=== PATIENT | male | born 1990 | race Caucasian/White ===

== ENCOUNTER 2022-12-22 02:36 | Emergency (ER) | payer OTHER ==
[~2022-12-22] VITALS: Ht 175.3 cm; Wt 130.6 kg
--- NOTE | 2022-12-22 03:10 | NUR ---
ATTEMPTED TO TRIAGE PATIENT. PT NOT FOUND IN WAITING ROOM.
[2022-12-22 03:11] VITALS: BP_SYST 129
--- NOTE | 2022-12-22 03:20 | NUR ---
PT FROM WORK WITH C/O OF EARACHE TO BOTH EARS ACCOMPANIED BY SORE THROAT, DIZZINESS WHEN COUGHING, AND FEVER ON TUESDAY. NON-FEBRILE ON ARRIVAL. BP OF 129/99, MADE AWARE. MD REQUESTED FOR MSE.
--- NOTE | 2022-12-22 03:23 | NUR ---
DR. HEBERT WITH PATIENT IN TRIAGE FOR MSE.
[2022-12-22] MEDS ORDERED: AUG875 PO (03:29)
[2022-12-22] MEDS ORDERED: MED4 PO (03:29)
[2022-12-22 03:32] VITALS: BP_SYST 129
--- NOTE | 2022-12-22 03:32 | NUR ---
Patient given written and verbal discharge instructions and verbalizes understanding. ER DR. HEBERT discussed with patient the results and treatment provided. Patient in stable condition. ID arm band removed. Rx of AUGMENTIN, MEDROL given. Patient educated on pain management and to follow up with PMD. Pain Scale 0. Opportunity for questions provided and answered. Medication side effect fact sheet provided.
--- NOTE | 2022-12-22 03:32 | NUR ---
D/C BY DR. HEBERT.
== END 2022-12-22 03:22 | disposition home or self-care (01) ==
LOC: SED 02:36
DX: J02.9 Acute pharyngitis, unspecified (principal); R05.9 Cough, unspecified; R50.9 Fever, unspecified; Z79.899 Other long term (current) drug therapy
CPT/HCPCS: 99283

== ENCOUNTER 2023-01-01 11:41 | Outpatient (CLI) | payer OTHER ==
[~2023-01-01 11:41] MED LIST: AUG875 PO; MED4 PO
[2023-01-01 12:15] LABS: BASOPHILS % (AUTO) 0.4 % (0.0-2.0); EOSINOPHILS # (AUTO) 0.1 K/uL (0.0-0.4); EOSINOPHILS % (AUTO) 1.7 % (0.0-4.0); HEMATOCRIT 43.7 % (36-54); HEMOGLOBIN 14.9 g/dL (14.0-18.0); LYMPHOCYTES # (AUTO) 2.7 K/uL (1.0-5.5); LYMPHOCYTES % (AUTO) 35.7 % (20.5-51.5); MEAN CORPUSCULAR HEMOGLOBIN 30 pg (27-31); MEAN CORPUSCULAR HGB CONC 34 % (32-36); MEAN CORPUSCULAR VOLUME 87 fL (79.0-98.0); MONOCYTES # (AUTO) 0.4 K/uL (0.0-1.0); MONOCYTES % (AUTO) 5.4 % (1.7-9.3); NEUTROPHILS # (AUTO) 4.3 K/uL (1.8-7.7); NEUTROPHILS % (AUTO) 56.8 % (40.0-70.0); PLATELET COUNT (AUTO) 301 K/uL (130-430); RED BLOOD CELL COUNT(AUTO) 5.02 MIL/uL (4.2-6.2); RED CELL DISTRIBUTION WIDTH 13.1 % (9.0-15.0); WHITE BLOOD COUNT (AUTO) 7.5 K/uL (4.8-10.8)
[2023-01-01 12:50] LABS: ALBUMIN 3.8 g/dL (3.4-4.8); CALCIUM 8.6 mg/dL (8.4-11.0); CREATININE 0.93 mg/dL (0.55-1.30); THYROID STIMULATING HORMONE 2.75 uIu/mL (0.34-4.82); TOTAL BILIRUBIN 0.5 mg/dL (0.0-1.0)
[2023-01-01 13:19] LABS: BILIRUBIN,URINE NEGATIVE (NEGATIVE); BLOOD, URINE NEGATIVE (NEGATIVE); CLARITY/URINE CLEAR (CLEAR); COLOR,URINE YELLOW (YELLOW); GLUCOSE,URINE NEGATIVE (NEGATIVE); KETONES,URINE NEGATIVE (NEGATIVE); LEUKOCYTE ESTERASE ,URINE NEGATIVE (NEGATIVE); NITRITE, URINE NEGATIVE (NEGATIVE); PH,URINE 6.5 (5.0-8.0); PROTEIN URINE NEGATIVE (NEGATIVE); UROBILINOGEN,URINE 0.2 (0.2-1.0)
== END 2023-01-01 16:41 | disposition home or self-care (01) ==
LOC: SLB 11:41
PROVIDERS: ATTEND Internal Medicine
DX: Z11.3 Encounter for screening for infections with a predominantly sexual mode of transmission (principal); E78.5 Hyperlipidemia, unspecified; R73.9 Hyperglycemia, unspecified; E55.9 Vitamin D deficiency, unspecified; E56.9 Vitamin deficiency, unspecified
CPT/HCPCS: 36415; 80053; 80061; 81003; 82306; 82607; 83037; 84443; 85025; 86592; 87491

== ENCOUNTER 2023-02-14 06:18 | Outpatient (CLI) | payer OTHER | END 2023-02-14 18:51 | disposition home or self-care (01) | LOC: SRD 06:18 | PROVIDERS: ATTEND Internal Medicine | DX: I51.7 Cardiomegaly (principal); M54.9 Dorsalgia, unspecified; M40.294 Other kyphosis, thoracic region | CPT/HCPCS: 72072-TC; 72100-TC; 93306 ==

== ENCOUNTER 2023-02-27 07:44 | Emergency (ER) | payer OTHER ==
[~2023-02-27] VITALS: Ht 175.3 cm; Wt 127.5 kg
--- NOTE | 2023-02-27 08:00 | NUR ---
PT BIB SELF AWAKE AND ALERT AOX4, NO SOB ORDISTRESS. PT C/O HEART PALPITATION AND CHEST TIGHTNESS. PT DENIES PAIN. 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 PT HAS HX OF PALPITATION, HTN, PVC.
--- NOTE | 2023-02-27 08:01 | NUR ---
MD DR HEBERT AT BEDSIDE
[2023-02-27 08:23] LABS: BASOPHILS % (AUTO) 0.3 % (0.0-2.0); EOSINOPHILS # (AUTO) 0.2 K/uL (0.0-0.4); EOSINOPHILS % (AUTO) 2.6 % (0.0-4.0); HEMATOCRIT 44.1 % (36-54); HEMOGLOBIN 15.2 g/dL (14.0-18.0); LYMPHOCYTES # (AUTO) 2.1 K/uL (1.0-5.5); LYMPHOCYTES % (AUTO) 31.9 % (20.5-51.5); MEAN CORPUSCULAR HEMOGLOBIN 30 pg (27-31); MEAN CORPUSCULAR HGB CONC 34 % (32-36); MEAN CORPUSCULAR VOLUME 87 fL (79.0-98.0); MONOCYTES # (AUTO) 0.5 K/uL (0.0-1.0); MONOCYTES % (AUTO) 7.2 % (1.7-9.3); NEUTROPHILS # (AUTO) 3.9 K/uL (1.8-7.7); PLATELET COUNT (AUTO) 242 K/uL (130-430); RED BLOOD CELL COUNT(AUTO) 5.06 MIL/uL (4.2-6.2); RED CELL DISTRIBUTION WIDTH 12.8 % (9.0-15.0); WHITE BLOOD COUNT (AUTO) 6.7 K/uL (4.8-10.8)
[2023-02-27 08:43] LABS: CALCIUM 8.7 mg/dL (8.4-11.0); CREATININE 0.88 mg/dL (0.55-1.30); TOTAL BILIRUBIN 0.6 mg/dL (0.0-1.0)
[2023-02-27 09:09] VITALS: BP_SYST 143
[2023-02-27 09:14] LABS: THYROID STIMULATING HORMONE 1.37 uIu/mL (0.34-4.82)
[2023-02-27 10:38] VITALS: BP_SYST 117
--- NOTE | 2023-02-27 10:38 | NUR ---
Patient given written and verbal discharge instructions and verbalizes understanding. ER MD discussed with patient the results and treatment provided. Patient in stable condition. ID arm band removed. Opportunity for questions provided and answered. Medication side effect fact sheet provided.
== END 2023-02-27 10:38 | disposition home or self-care (01) ==
LOC: SED 07:44
DX: R07.89 Other chest pain (principal); F41.1 Generalized anxiety disorder; R00.2 Palpitations; R20.2 Paresthesia of skin; Z79.899 Other long term (current) drug therapy
CPT/HCPCS: 36415; 71045; 80053; 83880; 84443; 84484; 85025; 85379; 99284

== ENCOUNTER → 2023-05-17 | Outpatient (CLI) | payer OTHER ==
[2023-05-18 00:32] LABS: ERYTHROCYTE SEDIMENTATION RATE 3 MM/HR (0-15)
[2023-05-18 00:35] LABS: BASOPHILS % (AUTO) 0.3 % (0.0-2.0); EOSINOPHILS # (AUTO) 0.1 K/uL (0.0-0.4); EOSINOPHILS % (AUTO) 1.5 % (0.0-4.0); HEMATOCRIT 44.3 % (36-54); HEMOGLOBIN 14.8 g/dL (14.0-18.0); LYMPHOCYTES % (AUTO) 35.8 % (20.5-51.5); MEAN CORPUSCULAR HEMOGLOBIN 30 pg (27-31); MEAN CORPUSCULAR HGB CONC 34 % (32-36); MEAN CORPUSCULAR VOLUME 88 fL (79.0-98.0); MONOCYTES # (AUTO) 0.6 K/uL (0.0-1.0); MONOCYTES % (AUTO) 6.7 % (1.7-9.3); NEUTROPHILS # (AUTO) 4.7 K/uL (1.8-7.7); NEUTROPHILS % (AUTO) 55.7 % (40.0-70.0); PLATELET COUNT (AUTO) 263 K/uL (130-430); RED BLOOD CELL COUNT(AUTO) 5.03 MIL/uL (4.2-6.2); RED CELL DISTRIBUTION WIDTH 12.7 % (9.0-15.0); WHITE BLOOD COUNT (AUTO) 8.4 K/uL (4.8-10.8)
[2023-05-18 00:46] LABS: HEMOGLOBIN A1C 4.93 % (<5.7)
[2023-05-18 01:08] LABS: ALBUMIN 3.9 g/dL (3.4-4.8); CALCIUM 8.9 mg/dL (8.4-11.0); CREATININE 1.04 mg/dL (0.55-1.30); THYROID STIMULATING HORMONE 2.31 uIu/mL (0.34-4.82); TOTAL BILIRUBIN 0.4 mg/dL (0.0-1.0)
== END | disposition home or self-care (01) ==
LOC: SLB 23:55
PROVIDERS: ATTEND Internal Medicine
DX: E03.9 Hypothyroidism, unspecified (principal); R73.9 Hyperglycemia, unspecified; E55.9 Vitamin D deficiency, unspecified
CPT/HCPCS: 36415; 80053; 82306; 83037; 83735; 84403; 84443; 85025; 85651-TC

== ENCOUNTER 2023-06-13 04:43 | Emergency (ER) | payer OTHER ==
[~2023-06-13] VITALS: Ht 175.3 cm; Wt 115.7 kg
[2023-06-13 05:10] VITALS: BP_SYST 118; PULSE 132; RESP 19; TEMP 97.6; O2SAT 97
[2023-06-13 06:19] LABS: INFLUENZA TYPE A negative (NEGATIVE); INFLUENZA TYPE B NEGATIVE (NEGATIVE)
[2023-06-13] MEDS ORDERED: D-ME118S48 PO (06:32)
[2023-06-13 06:57] VITALS: BP_SYST 143; PULSE 109; RESP 17; TEMP 98; O2SAT 98
== END 2023-06-13 06:52 | disposition home or self-care (01) ==
LOC: SED 04:43
DX: J06.9 Acute upper respiratory infection, unspecified (principal); R05.9 Cough, unspecified; R09.81 Nasal congestion; R50.9 Fever, unspecified; Z79.899 Other long term (current) drug therapy
CPT/HCPCS: 99284; 71045; 36415; 87804 ×2; J7030

== ENCOUNTER 2023-10-06 01:16 | Emergency (ER) | payer OTHER ==
[~2023-10-06] VITALS: Ht 175.3 cm; Wt 113.4 kg
[~2023-10-06 01:16] MED LIST changes: +BROM118S61 PO
[2023-10-06] MEDS ORDERED: NACL 0.9% 1,000 ML IV ONE (02:00)
[2023-10-06] MEDS ORDERED: ONDANSETRON HCL 4 MG/2 ML VIAL IVP ONE ×2 (02:00→03:45)
[2023-10-06 02:41] VITALS: BP_SYST 122; PULSE 107; RESP 20; TEMP 98.8; O2SAT 97
[2023-10-06 02:45] LABS: BASOPHILS % (AUTO) 0.1 % (0.0-2.0); EOSINOPHILS % (AUTO) 0.3 % (0.0-4.0); HEMATOCRIT 46.7 % (36-54); HEMOGLOBIN 16.1 g/dL (14.0-18.0); LYMPHOCYTES # (AUTO) 0.4 K/uL (1.0-5.5); LYMPHOCYTES % (AUTO) 4.8 % (20.5-51.5); MEAN CORPUSCULAR HEMOGLOBIN 30 pg (27-31); MEAN CORPUSCULAR HGB CONC 35 % (32-36); MEAN CORPUSCULAR VOLUME 88 fL (79.0-98.0); MONOCYTES # (AUTO) 0.3 K/uL (0.0-1.0); NEUTROPHILS # (AUTO) 8.2 K/uL (1.8-7.7); NEUTROPHILS % (AUTO) 91.8 % (40.0-70.0); PLATELET COUNT (AUTO) 246 K/uL (130-430); WHITE BLOOD COUNT (AUTO) 8.9 K/uL (4.8-10.8)
[2023-10-06 02:50] LABS: INFLUENZA TYPE A Negative (NEGATIVE); INFLUENZA TYPE B NEGATIVE (NEGATIVE)
[2023-10-06 02:51] LABS: ANION GAP 12 (5-15); CALCIUM 8.6 mg/dL (8.4-11.0); CARBON DIOXIDE 26 mmol/L (23-29); CHLORIDE 98 mmol/L (98-107); CREATININE 0.95 mg/dL (0.55-1.30); GFR AFRICAN AMERICAN 118 mL/min (>90); GFR NON AFRICAN-AMERICAN 98 mL/min (>90); GLUCOSE 127 mg/dL (74-106); POTASSIUM 3.4 mmol/L (3.5-5.1); SODIUM SERUM 136 mmol/L (136-145); UREA NITROGEN, BLOOD 14 mg/dL (8-21)
[2023-10-06] MEDS ORDERED: iohexoL 350 mgI/mL, 100 ML INFUS..BTL IV ONE (03:22)
[2023-10-06 05:11] LABS: BILIRUBIN,URINE NEGATIVE (NEGATIVE); BLOOD, URINE NEGATIVE (NEGATIVE); CLARITY/URINE CLEAR (CLEAR); COLOR,URINE YELLOW (YELLOW); GLUCOSE,URINE NEGATIVE (NEGATIVE); KETONES,URINE 1+ (NEGATIVE); LEUKOCYTE ESTERASE ,URINE NEGATIVE (NEGATIVE); NITRITE, URINE NEGATIVE (NEGATIVE); PROTEIN URINE NEGATIVE (NEGATIVE); UROBILINOGEN,URINE 0.2 (0.2-1.0)
[2023-10-06] MEDS ORDERED: ONDA-8 TL (05:53)
[2023-10-06 06:10] VITALS: BP_SYST 129; PULSE 110; RESP 22; TEMP 98.9; O2SAT 100
== END 2023-10-09 06:19 | disposition home or self-care (01) ==
LOC: SED 01:16
DX: K52.9 Noninfective gastroenteritis and colitis, unspecified (principal); R00.0 Tachycardia, unspecified; E86.0 Dehydration; R20.2 Paresthesia of skin; R11.2 Nausea with vomiting, unspecified; Z79.899 Other long term (current) drug therapy; Z20.822 Contact with and (suspected) exposure to COVID-19
CPT/HCPCS: 99285; 96374; 71275; 96361; 87426; 80048; 81001; 85025; 84484; 36415; 93005; 96376; 81003; 87804 ×2; 76376; Q9967; J2405; J7030

== ENCOUNTER 2024-01-23 15:41 | Outpatient (CLI) | payer OTHER ==
[~2024-01-23 15:41] MED LIST changes: +ONDA-8 TL
[2024-01-23 16:29] LABS: BLOOD, URINE NEGATIVE (NEGATIVE); CLARITY/URINE CLEAR (CLEAR); COLOR,URINE YELLOW (YELLOW); GLUCOSE,URINE NEGATIVE (NEGATIVE); KETONES,URINE 2+ (NEGATIVE); LEUKOCYTE ESTERASE ,URINE NEGATIVE (NEGATIVE); NITRITE, URINE NEGATIVE (NEGATIVE); PH,URINE 6.5 (5.0-8.0); PROTEIN URINE TRACE (NEGATIVE)
[2024-01-23 16:39] LABS: BASOPHILS % (AUTO) 0.4 % (0.0-2.0); EOSINOPHILS # (AUTO) 0.1 K/uL (0.0-0.4); EOSINOPHILS % (AUTO) 1.2 % (0.0-4.0); HEMATOCRIT 44.3 % (36-54); HEMOGLOBIN 15.6 g/dL (14.0-18.0); LYMPHOCYTES # (AUTO) 2.4 K/uL (1.0-5.5); LYMPHOCYTES % (AUTO) 39.1 % (20.5-51.5); MEAN CORPUSCULAR HEMOGLOBIN 30 pg (27-31); MEAN CORPUSCULAR HGB CONC 35 % (32-36); MEAN CORPUSCULAR VOLUME 86 fL (79.0-98.0); MONOCYTES # (AUTO) 0.4 K/uL (0.0-1.0); NEUTROPHILS # (AUTO) 3.3 K/uL (1.8-7.7); NEUTROPHILS % (AUTO) 52.3 % (40.0-70.0); PLATELET COUNT (AUTO) 251 K/uL (130-430); RED BLOOD CELL COUNT(AUTO) 5.15 MIL/uL (4.2-6.2); RED CELL DISTRIBUTION WIDTH 12.7 % (9.0-15.0); WHITE BLOOD COUNT (AUTO) 6.3 K/uL (4.8-10.8)
[2024-01-23 16:45] LABS: BILIRUBIN,URINE 1+ (NEGATIVE)
[2024-01-23 16:47] LABS: BACTERIA,URINE RARE /HPF (None Seen); RBC,URINE NONE SEEN /HPF (0-3); WBC,URINE 0-3 /HPF (0-3)
[2024-01-23 16:48] LABS: MUCUS,URINE None Seen /LPF (None Seen)
[2024-01-23 17:06] LABS: ALBUMIN 4.3 g/dL (3.4-4.8); CALCIUM 9.4 mg/dL (8.4-11.0); CREATININE 1.04 mg/dL (0.55-1.30); FREE T4 (FREE THYROXINE) 1.1 ng/dl (0.8-1.5); POTASSIUM 3.6 mmol/L (3.5-5.1); THYROID STIMULATING HORMONE 3.46 uIu/mL (0.36-3.74); TOTAL BILIRUBIN 1.1 mg/dL (0.0-1.0); TOTAL PROTEIN, SERUM 7.9 g/dL (6.4-8.3)
[2024-01-23 17:14] LABS: HEMOGLOBIN A1C 5.11 % (<5.7)
[2024-01-25 08:06] LABS: HSV 2 IgG, TYPE SPECIFIC <0.91 index (0.00-0.90); TESTOSTERONE, TOTAL SERUM 362 ng/dL (264-916)
[2024-01-25 11:07] LABS: VIT D,1, 25-DIHYDROXY 72.1 pg/mL (24.8-81.5)
== END 2024-01-23 19:23 | disposition home or self-care (01) ==
LOC: SLB 15:41
PROVIDERS: ATTEND Internal Medicine
DX: Z11.3 Encounter for screening for infections with a predominantly sexual mode of transmission (principal); E66.01 Morbid (severe) obesity due to excess calories; E78.5 Hyperlipidemia, unspecified; E03.9 Hypothyroidism, unspecified; I10 Essential (primary) hypertension; E55.9 Vitamin D deficiency, unspecified; E56.9 Vitamin deficiency, unspecified
CPT/HCPCS: 36415; 80053; 80061; 81000; 81001; 81015; 82306; 83037; 83735; 84403; 84439; 84443; 85025; 86592; 86695; 86696; 87491